=== PATIENT | female | born 1990 | race Caucasian/White ===

== ENCOUNTER 2024-03-11 20:21 | Emergency (ER) | payer SELFPAY ==
[~2024-03-11] VITALS: Ht 167.6 cm; Wt 95.5 kg
[~2024-03-11 20:21] MED LIST: EPI EZ PEN1 MG/ML IM; EPIPEN 2-PAK1 MG/ML IM; NO HOME MEDICATIONS
[2024-03-11 20:44] VITALS: TEMP 98.3
[2024-03-11] MEDS ORDERED: EPINEPHrine 0.3 MG/0.3 ML Auto Injector IM ONE (21:00)
[2024-03-11] MEDS ORDERED: methylPREDNISolone Sod Succ 125 MG/2 ML VIAL IV ONE (21:00)
[2024-03-11] MEDS ORDERED: diphenhydrAMINE 50 MG/ML 1 ML VIAL IV ONE (21:00)
[2024-03-11] MEDS ORDERED: Albuterol/Ipratropium 3 MG-0.5 MG/3 ML Neb Soln IH ONE (21:00)
[2024-03-11] MEDS ORDERED: Ondansetron 4 MG/2 ML VIAL IV ONE (21:00)
[2024-03-11 21:06] LABS: HEMATOCRIT 49.3 % (37.0-47.0); HEMOGLOBIN 16.6 g/dl (12.5-16.0); MEAN CELL VOLUME 89 fl (80.0-100.0); MEAN CORPUSCULAR HEMOGLOBIN 30 pg (27-31); MEAN CORPUSCULAR HGB CONC 34 g/dl (33.0-37.0); MEAN PLATELET VOLUME 9.6 fl (7.4-10.4); PLATELET COUNT 402 K/mm3 (130-400); RED BLOOD COUNT 5.53 M/mm3 (4.10-5.30); REDCELL DISTRIBUTION WIDTH-CV 12.2 % (11.5-14.5)
[2024-03-11 21:20] LABS: ALBUMIN 4.2 g/dL (3.5-5.0); BILIRUBIN,TOTAL 0.4 mg/dL (0.2-1.2); CALCIUM 10.4 mg/dL (8.4-10.2); CREATININE, serum 1.28 mg/dL (0.57-1.11); POTASSIUM 3.9 mEq/L (3.5-4.5); TOTAL PROTEIN 7.3 g/dl (6.2-8.1)
[2024-03-11 21:41] LABS: LYMPHOCYTE 61 % (20.0-51.0); NEUTROPHILS 35 % (42.0-75.2)
[2024-03-11 21:42] LABS: PLATELET ESTIMATE INCREASED (NORMAL)
[2024-03-11] MEDS ORDERED: EPIPEN 2-PAK1 MG/ML IM (22:05)
[2024-03-11] MEDS ORDERED: PREDNISONE20 MG PO (22:05)
[2024-03-11 22:39] VITALS: BP 128/78; PULSE 87
== END 2024-03-11 22:39 | disposition home or self-care (01) ==
LOC: COL.ER 20:21
PROVIDERS: Family Medicine
DX: T78.2XXA Anaphylactic shock, unspecified, initial encounter (principal); Z87.891 Personal history of nicotine dependence
CPT/HCPCS: J1200; J2405; J2919